=== PATIENT | male | born 1965 | race African-American/Black ===

== ENCOUNTER 2018-01-31 13:30 | Emergency (ER) | payer OTHER ==
[~2018-01-31] VITALS: Ht 175.3 cm; Wt 81.6 kg
[2018-01-31 13:38] VITALS: BP 141/94
[2018-01-31] MEDS ORDERED: TETANUS-DIPTH-ACEL PERTUSSIS 0.5ML SYRG IM ONE (14:30)
[2018-01-31] MEDS ORDERED: BACITRACIN TOP OINT 1 UD PKG TOP ONE (15:48)
== END 2018-01-31 16:03 | disposition home or self-care (01) ==
LOC: ER 13:30
DX: S61.512A Laceration without foreign body of left wrist, initial encounter (principal); L03.114 Cellulitis of left upper limb; W45.8XXA Other foreign body or object entering through skin, initial encounter; Y93.89 Activity, other specified; Y99.8 Other external cause status; Y92.89 Other specified places as the place of occurrence of the external cause
CPT/HCPCS: 73110; 90471; 90715